=== PATIENT | female | born 1985 | race Caucasian/White ===

== ENCOUNTER → 2017-02-08 | Day surgery (SDC) | payer OTHER ==
--- NOTE | 2017-02-09 16:13 | PATH ---
Surgical Pathology Report Patient Name: EUGENIO MACIAS [facility]. Rec. #: [id number] /Age/Gender: 1985 (Age: 31) / F Account: [id number] Location: [facility] Taken: 02/08/2017 Received: 02/08/2017 Reported: 02/09/2017 Physicians: Isi Parson M.D. Specimen(s) Received LEFT AXILLARY BIOPSY Clinical History Ultrasound findings: Probably benign Final Diagnosis AXILLA, LEFT, CORE BIOPSY: BENIGN LYMPH NODE. Electronically Signed No Patterson M.D. Gross Description Received in formalin labeled "left axilla biopsy," is a 1.8 x 1.3 x 0.3 cm aggregate of multiple soto-yellow, irregular to cylindrical portions of fibroadipose tissue admixed with blood clot. The formalin is filtered and the specimen is entirely submitted in one cassette. Time to formalin fixation: 2 minute Total formalin fixation time; approximately 7 hours /02/08/201702/08/2017
== END | disposition home or self-care (01) ==
LOC: FRADUS-SUR 10:40
PROVIDERS: ATTEND Legal Medicine
PROC: 07B63ZX Excision of Left Axillary Lymphatic, Percutaneous Approach, Diagnostic (ICD-10-PCS; principal; 2017-02-08)
PROC: BH47ZZZ Ultrasonography of Upper Extremity (ICD-10-PCS; 2017-02-08)
DX: R59.9 Enlarged lymph nodes, unspecified (principal)
CPT/HCPCS: 76942-TC; 88305-TC

== ENCOUNTER 2018-04-07 16:18 | Emergency (ER) | payer OTHER ==
[2018-04-07 16:26] VITALS: BMI 19.5
[2018-04-07] MEDS ORDERED: METHOCARBAMOL 500 MG TABLET PO ONE (16:38)
[2018-04-07] MEDS ORDERED: NAPROXEN 500 MG TABLET (FP) PO ONE (16:38)
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
[2018-04-07] MEDS ORDERED: NAPROXEN 500 MG TABLET (FP) ONE (17:04)
[2018-04-07] MEDS ORDERED: METHOCARBAMOL 500 MG TABLET ONE (17:04)
[2018-04-07 17:44] VITALS: BP 117/70; PULSE 107; TEMP 98.2
== END 2018-04-07 17:54 | disposition home or self-care (01) ==
LOC: FER 16:18
DX: M62.830 Muscle spasm of back (principal); F17.210 Nicotine dependence, cigarettes, uncomplicated; Z87.39 Personal history of other diseases of the musculoskeletal system and connective tissue
CPT/HCPCS: 72070-TC-FY; 72100-TC-FY; 84703; 99282-25

== ENCOUNTER 2018-08-11 10:50 | Emergency (ER) | payer OTHER ==
[2018-08-11 11:04] VITALS: BP 113/65; TEMP 98.4; BMI 19.5
--- NOTE | 2018-08-11 12:57 | PDOC ---
History of Present Illness - General Chief Complaint: Rash Stated Complaint: ITCHY RASH TO RT KNEE Time Seen by Provider: 08/11/18 12:04 History Source: Patient Exam Limitations: No Limitations - History of Present Illness Initial Comments: 08/11/18 12:56 33F with pmh of Lupus and Sjrogen syndrom presents to the Ed with 2 weeks of pruritic rash over knees, legs and face. Worse at night when laying down. Decreased her dose of steroid 1 month ago. No one else is itchy or has rash at home. Appointment with her student support advisor on Monday. Denies any fevers or chills. Denies nausea, vomiting, diarrhea. Denies any lesions in her mouth or in her vaginal area. Denies any chest pain, shortness of breath, abdominal pain, headache, weakness or numbness. 08/11/18 13:54 Past History - Past Medical History Allergies/Adverse Reactions: Allergies Allergy/AdvReac Type Severity Reaction Status Date / Time No Known Allergies Allergy Verified 08/11/18 10:52 Home Medications: Ambulatory Orders Clonazepam [Klonopin] 2 mg PO ASDIR 02/12/13 Belimumab [Benlysta] 0 mg IV MONTHLY 04/07/18 Nortriptyline HCl [Pamelor -] 50 mg PO BID 04/07/18 predniSONE [Deltasone -] 10 mg PO DAILY 04/07/18 Diphenhydramine HCl [Benadryl -] 25 mg PO Q8H PRN #21 capsule 08/11/18 Anemia: No Asthma: No Cancer: No Cardiac Disorders: No CVA: No COPD: No CHF: No Dementia: No Diabetes: No GI Disorders: No Disorders: No HTN: No Hypercholesterolemia: No Kidney Stones: No Liver Disease: No Psychiatric Problems: Yes (ANXIETY) Seizures: No Thyroid Disease: No - Surgical History Abdominal Surgery: No Appendectomy: No Cardiac Surgery: No Cholecystectomy: Yes (lap cholecystectomy in 2010) Lung Surgery: No Neurologic Surgery: No Orthopedic Surgery: No - Reproductive History PID: No - Suicide/Smoking/Psychosocial Hx Smoking Status: Yes Smoking History: Current every day smoker Have you smoked in the past 12 months: Yes Number of Cigarettes Smoked Daily: 10 Information on smoking cessation initiated: Yes 'Breaking Loose' booklet given: 08/11/18 Hx Alcohol Use: No Drug/Substance Use Hx: No Substance Use Type: Heroin Hx Substance Use Treatment: Yes Review of Systems - Review of Systems Able to Perform ROS?: Yes Is the patient limited Irish proficient: No Constitutional: No: Symptoms Reported HEENTM: No: Symptoms Reported Respiratory: No: Symptoms reported Cardiac (ROS): No: Symptoms Reported ABD/GI: No: Symptoms Reported Integumentary: Yes: See HPI *Physical Exam - Vital Signs Last Vital Signs Temp Pulse Resp BP Pulse Ox 98.4 F 104 H 20 113/65 100 08/11/18 10:50 08/11/18 10:50 08/11/18 10:50 08/11/18 10:50 08/11/18 10:50 - Physical Exam General Appearance: Yes: Nourished, Appropriately Dressed. No: Apparent Distress HEENT: positive: EOMI, JOE, Normal ENT Inspection Respiratory/Chest: positive: Lungs Clear, Normal Breath Sounds. negative: Chest Tender, Respiratory Distress Cardiovascular: positive: Regular Rhythm, Regular Rate, S1, S2 Musculoskeletal: positive: Normal Inspection Integumentary: positive: Other (maculopapular rash over right knee, thigh and left face. No burrowing or linear lesions) Neurologic: positive: Fully Oriented, Alert, Normal Mood/Affect, Normal Response Medical Decision Making - Medical Decision Making 08/11/18 13:56 33f with lupus presenting to the ED for pruritic rash. Although there was original concern that this might be scabies, this is less likely due to the presentation, distribution and history of patient's lupus and steroid medication having decreased in dosage beofre symptoms appeared. Will treat with benadryl and follow up wioth pcp. *DC/Admit/Observation/Transfer Diagnosis at time of Disposition: Rash - Discharge Dispostion Disposition: HOME Condition at time of disposition: Stable Decision to Admit order: No - Prescriptions Prescriptions: Diphenhydramine HCl [Benadryl -] 25 mg PO Q8H PRN #21 capsule PRN Reason: itching - Referrals - Patient Instructions Printed Discharge Instructions: DI for Rash Additional Instructions: Take benadryl as needed for itching every 8 hours. This medication can make your drowsy so do not drive or operate machinery while taking it. Follow up with your student support advisor at [facility] as scheduled on Monday Return to the emergency department if you have any new, worsening, or concerning symptoms such as fevers, blisters, increasing redness. - Post Discharge Activity
[2018-08-11] MEDS ORDERED: IVERMECTIN 3 MG TABLET PO ONE (13:05)
[2018-08-11] MEDS ORDERED: diphenhydrAMINE HCL 25 MG CAPSULE (FP) PO ONE ×2 (13:12→13:17)
--- NOTE | 2018-08-11 13:17 | PDOC ---
Attending Attestation - Resident Resident Name: Darshan Holloway - ED Attending Attestation I have performed the following: I have examined & evaluated the patient, The case was reviewed & discussed with the resident, I agree w/resident's findings & plan, Exceptions are as noted - HPI HPI: 08/11/18 13:31 33-year-old female with a history of lupus (on plaquenil, prednisone and monthly benlysta) and Sjogren syndrome presents to the emergency department with 3+ weeks of rash. Patient reports the rash is mostly over her right thigh and bilateral upper extremities. She reports the itching has been keeping her up at night prompting her to come to the emergency department. She states she often has rashes that her hoop machine operator chalks up to her lupus. She has been unable to follow-up with her hoop machine operator recently. She has not tried any treatments. SHe lives with her mother, brother, and his girlfriend all of whom have no rashes. She reports one month ago her hoop machine operator decreased her prednisone from 10 mg to 7.5 after which the rash appeared. She has an appointment with her hoop machine operator on Monday. Denies any fevers or chills. Denies nausea, vomiting, diarrhea. Denies any lesions in her mouth or in her vaginal area. Denies any chest pain, shortness of breath, abdominal pain, headache, weakness or numbness. +smoker, denies drug use - Physicial Exam PE: 08/11/18 13:34 GENERAL: Awake, alert, and fully oriented, in no acute distress, non toxic HEAD: No signs of trauma EYES: PERRLA, EOMI, sclera anicteric, conjunctiva clear ENT: Auricles normal inspection, hearing grossly normal, nares patent, oropharynx clear without exudates. Moist mucosa NECK: Normal ROM, supple, no lymphadenopathy, JVD, or masses LUNGS: Breath sounds equal, clear to auscultation bilaterally. No wheezes, and no crackles HEART: Regular rate and rhythm, normal S1 and S2, no murmurs, rubs or gallops ABDOMEN: Soft, nontender, normoactive bowel sounds. No guarding, no rebound. No masses EXTREMITIES: Normal range of motion, no edema. No clubbing or cyanosis. No cords, erythema, or tenderness NEUROLOGICAL: Normal speech, cranial nerves intact, negative pronator drift, 5/ 5 strength in all 4 extremities, normal sensation to light touch in all 4 extremities, normal cerebellar exam, normal gait, normal reflexes and tone SKIN: L thigh, b/l arms with jarrod erythematous blanching patches with excoriations. No lesions in mucous membranes, no blisters, no induration. - Medical Decision Making 08/11/18 13:36 33yo F hx SLE, sjogrens presnts to the ED with pruritic rash. Pt is non toxic, well appearing and rash does not appear to have blisters, and is not infectious. Rash began after prednisone dose was decreased from 10 to 7.5mg. Pt given benadryl in ED, feels better and will follow up with her hoop machine operator in 2 days. Recommended pt increase her prednisone to 10mg again as rash began after dose was decreased. Pt requests Dc home, return precautions given. I discussed the physical exam findings, ancillary test results and final diagnoses with the patient. I answered all of the patient's questions. The patient was satisfied with the care received and felt comfortable with the discharge plan and treatment plan. The patient will call their primary care physician within 24 hours to arrange follow-up and will return to the Emergency Department with any new, persistent or worsening symptoms. *DC/Admit/Observation/Transfer Diagnosis at time of Disposition: Rash - Discharge Dispostion Disposition: HOME Condition at time of disposition: Stable Decision to Admit order: No - Prescriptions Prescriptions: Diphenhydramine HCl [Benadryl -] 25 mg PO Q8H PRN #21 capsule PRN Reason: itching - Referrals - Patient Instructions Printed Discharge Instructions: DI for Rash Additional Instructions: Take benadryl as needed for itching every 8 hours. This medication can make your drowsy so do not drive or operate machinery while taking it. Follow up with your hoop machine operator at [facility] as scheduled on Monday Return to the emergency department if you have any new, worsening, or concerning symptoms such as fevers, blisters, increasing redness. - Post Discharge Activity - Attestations Physician Attestion: 08/11/18 13:49 I, Dr. Meghan Puga MD, attest that this document has been prepared under my direction and personally reviewed by me in its entirety. I further attest, that it accurately reflects all work, treatment, procedures and medical decision -making performed by me.
[2018-08-11 13:21] VITALS: PULSE 98
== END 2018-08-11 13:50 | disposition home or self-care (01) ==
LOC: FER 10:50
DX: R21 Rash and other nonspecific skin eruption (principal); F17.210 Nicotine dependence, cigarettes, uncomplicated; F41.9 Anxiety disorder, unspecified
CPT/HCPCS: 99282-25

== ENCOUNTER 2018-10-01 13:48 | Emergency (ER) | payer OTHER ==
[2018-10-01 13:56] VITALS: BMI 19.5
--- NOTE | 2018-10-01 14:17 | PDOC ---
History of Present Illness - General Chief Complaint: Pain Stated Complaint: Migraine Headache Time Seen by Provider: 10/01/18 14:17 - History of Present Illness Initial Comments: Debora Rice is a 33yo with a PMH of SLE, Sjogren's, and migraines who presents reporting migraine headache since Monday. She states that she does have a history of migraine but they usually "go away on their own" and that she takes medication for migraine prevention. Ms Rice states that she has had severe head pain, photophobia, nausea since Monday that has prevented her from eating or drinking anything. She took "half of something" for pain control at home but will not state what it was, though she says that she took it "a long time ago." She also endorses feeling sweaty today and states that she has had worsening back pain over the past 1-2 days. Ms Rice then stated that the "only way anyone is going to figure this out is to get blood and urine tests " and she declined to answer any additional questions. Past History - Past Medical History Allergies/Adverse Reactions: Allergies Allergy/AdvReac Type Severity Reaction Status Date / Time No Known Allergies Allergy Verified 10/01/18 13:55 Home Medications: Ambulatory Orders Clonazepam [Klonopin] 2 mg PO ASDIR 02/12/13 Belimumab [Benlysta] 0 mg IV MONTHLY 04/07/18 Nortriptyline HCl [Pamelor -] 50 mg PO BID 04/07/18 predniSONE [Deltasone -] 10 mg PO DAILY 04/07/18 Diphenhydramine HCl [Benadryl -] 25 mg PO Q8H PRN #21 capsule 08/11/18 Anemia: No Asthma: No Cancer: No Cardiac Disorders: No CVA: No COPD: No CHF: No Dementia: No Diabetes: No GI Disorders: No Disorders: No HTN: No Hypercholesterolemia: No Kidney Stones: No Liver Disease: No Psychiatric Problems: Yes (ANXIETY) Seizures: No Thyroid Disease: No Other medical history: Lupus - Surgical History Abdominal Surgery: No Appendectomy: No Cardiac Surgery: No Cholecystectomy: Yes (lap cholecystectomy in 2010) Lung Surgery: No Neurologic Surgery: No Orthopedic Surgery: No - Reproductive History PID: No - Immunization History Immunization Up to Date: Yes - Suicide/Smoking/Psychosocial Hx Smoking Status: Yes Smoking History: Current every day smoker Have you smoked in the past 12 months: Yes Number of Cigarettes Smoked Daily: 10 Information on smoking cessation initiated: No 'Breaking Loose' booklet given: 08/11/18 Hx Alcohol Use: No Drug/Substance Use Hx: No Substance Use Type: Heroin Hx Substance Use Treatment: Yes Review of Systems - Review of Systems Comments:: Would not provide, declined to answer. *Physical Exam - Vital Signs Last Vital Signs Temp Pulse Resp BP Pulse Ox 98.7 F 95 H 18 94/69 98 10/01/18 13:55 10/01/18 13:55 10/01/18 13:55 10/01/18 13:55 10/01/18 13:55 - Physical Exam Comments: General: No acute distress HEENT: Declined, kept eyes closed Cards: Tachycardic, regular, no murmur Pulm: Comfortable on room air, clear to auscultation bilaterally Abd: Soft, nontender, nondistended : No CVA tenderness Ext: No LE edema, moves all extremities Skin: Normal color, no rashes or lesions Neuro: A&Ox3, CN grossly intact, normal speech, motor/sensory grossly intact and symmetric. No focal neurological deficits or abnormalities. Psych: Uncooperative, upset Moderate Sedation - Procedure Monitoring Vital Signs: Procedure Monitoring Vital Signs Temperature 98.7 F 10/01/18 13:55 Pulse Rate 95 H 10/01/18 13:55 Respiratory Rate 18 10/01/18 13:55 Blood Pressure 94/69 10/01/18 13:55 O2 Sat by Pulse Oximetry (%) 98 10/01/18 13:55 ED Treatment Course - LABORATORY CBC & Chemistry Diagram: 10/01/18 02:37 10/01/18 02:37 Medical Decision Making - Medical Decision Making 10/01/18 14:35 Debora Rice is a 33yo with a PMH of SLE, Sjogren's, and migraines who presents reporting migraine headache with photophobia and nausea since Monday. She additionally reports body aches, sweating and was noted to be tachycardic. - Per pt, she has not taken any medication at home nor had anything to eat/ drink in 2 days - Uncooperative, unwilling to provide any additional information about her symptoms. - Most likely migraine but could be infectious given sweating, body aches and tachycardia. - CBC, CMP, mag, phos, UA, urine preg for evaluation - 1L NS given likely mild dehydration in the setting of poor PO intake. PO acetaminophen, reglan for symptoms. If not , will likely give ibuprofen or toradol. 10/01/18 16:24 - Labs reviewed, unremarkable. UA with +leuk esterase and a few RBC and WBC, but sample also contains epithelial cells and is likely contaminated. 10/01/18 17:29 - Feels significantly improved, requesting to go home. - D/C home with neurology follow up - Discussed home care and return precautions in detail; Ms Rice states understanding and agreement. Discussed with Dr Ramos. Cora Steele PGY1 *DC/Admit/Observation/Transfer Diagnosis at time of Disposition: Headache - Discharge Dispostion Disposition: HOME Condition at time of disposition: Stable Decision to Admit order: No - Referrals Referrals: Vish Lopez DO [Staff Physician] - - Patient Instructions Printed Discharge Instructions: DI for Migraine Additional Instructions: Discharge Instructions: - You were seen in the emergency department for headache, light sensitivity and nausea. These were most likely caused by a migraine headache. - You had blood and urine tests completed; the only abnormality noted was slight dehydration on your urine test. You had IV fluids for re-hydration. - Your pain improved after pain medications and a nausea medication. Home Care: - Take all of your previously prescreibed home medications - Try to increase fluid intake - At the first sign of a migraine, try to take [id number] pain medications. You may take 600-800mg ibuprofen (3-4 tablets of Motrin or Advil) OR 220-440mg naproxen (1-2 tablets of Aleve). DO NOT take both of these medications as they are very similar. If your symptoms persist after an hour or two, you may take 650-1000mg acetaminophen (two Tylenol). However, after that you should not take any additional pain medication for at least 6 to 8 hours. Follow Up: - You have been referred to Dr Lopez, neurology, for evaluation and treatment of migraines. You should make an appointment to be seen within the next 1-2 weeks. - Seek immediate medical care if your symptoms worsen or become very severe, your pain does not resolve after 5-7 days, you develop fever to 101F and/or a stiff neck, or you have neurological symptoms (slurred speech, one-sided weakness, facial droop). - Post Discharge Activity
[2018-10-01] MEDS ORDERED: ACETAMINOPHEN 325 MG TABLET (FP) PO ONE (14:31)
[2018-10-01] MEDS ORDERED: SODIUM CHLORIDE 0.9% 500 ML INFUS.BAG IV ONE (14:31)
--- NOTE | 2018-10-01 14:41 | PDOC ---
Attending Attestation - Resident Resident Name: Cora Steele - ED Attending Attestation I have performed the following: I have examined & evaluated the patient, The case was reviewed & discussed with the resident, I agree w/resident's findings & plan, Exceptions are as noted - Physicial Exam PE: 10/01/18 15:08 GENERAL: The patient is awake, alert, and fully oriented, Nontoxic - in no acute distress. HEAD: Normocephalic, atraumatic. EYES: extraocular movements intact, sclera anicteric, conjunctiva clear. ENT: Normal voice, Moist mucous membranes. NECK: Normal range of motion, supple LUNGS: Breath sounds equal, clear to auscultation bilaterally. No wheezes, no rhonchi, no rales. HEART: Regular rate and rhythm, normal S1 and S2 without murmur, rub or gallop. ABDOMEN: Soft, nontender, No guarding, no rebound. . No CVA tenderness EXTREMITIES: Normal range of motion, No clubbing or cyanosis. No cords, erythema, or tenderness. NEUROLOGICAL: No facial assymetry, Normal speech, moving all 4 extremities spontaneously and symmetrically PSYCH: Normal mood, normal affect. SKIN: Warm, Dry, normal turgor, - Medical Decision Making 10/01/18 14:52 33y F hx of lupos, schogrens, migraine headache since monday associated with photophobia, n/v, c/w prior. also complaining of back pain 10/01/18 15:10 gradual onset of headache on monday, throbbing in nature w/ photophobia, w/o associated focal neuro complaints, visoin changes, fevers, uri sypmtoms. headaace c/w prior headaches but alittl worse than usual. no improvement with her meds at home. On exam the patient is no acute distress nonfocal neuro exam. Suspect migraine headache will treat the patient with fluids, Reglan, Tylenol will reassess Based on clinical presentation and onset doubt SAH, no associated neuro complaints to suggest IIH <Andrea Ramos - Last Filed: 10/01/18 15:13> - HPI HPI: 33yo with a h/o SLE, Sjogren's, and migraines who presents to the emergency department for evaluation of headache, nausea, and lower back pain. Patient reports throbbing headache, which she describes as a pressure behind the left eye, radiating to the back of her head since Monday. headace started gradually on monday and worsened on monday. She reports associated photosensitivity and decreased PO intake. Pt reports mild lower back pain which developed yesterday evening. She states she took ""half of something"" for pain control with no alleviation. Headache similar in nature to previous headaches but has not resolved like it usually does with her meds. Patients LMP on 09/24/2018. No recent injuries/traumas. Denies abdominal pain, neck pain, chest pain, SOB, rhinorrhea, dizziness, fevers , chills, vomiting, vision changes, numbness/tingling/weakness, and any bowel/ urinary symptoms. <Divine Guevara - Last Filed: 10/01/18 17:02> Attestations - Attestations Documentation prepared by Divine Guevara, acting as medical laboratory technicians for Andrea Ramos MD. <Divine Guevara - Last Filed: 10/01/18 17:02>
[2018-10-01] MEDS ORDERED: METOCLOPRAMIDE HCL INJECTION 10 MG/2 ML VIAL IVPUSH ONE (14:55)
[2018-10-01 14:56] LABS: BASO % 1.5 % (0-2.0); EOS % 1.3 % (0-4.5); HEMATOCRIT 41.7 % (32.4-45.2); HEMOGLOBIN 14.3 GM/dL (10.7-15.3); LYMPH % 16.6 % (8-40); MCH 30.6 pg (25.7-33.7); MCHC 34.3 g/dl (32.0-36.0); MEAN CELL VOLUME 89.3 fl (80-96); MEAN PLT VOLUME 7.5 fl (7.5-11.1); MONO % 8.8 % (3.8-10.2); NEUT % 71.8 % (42.8-82.8); PLATELET COUNT 237 K/MM3 (134-434); RBC 4.67 M/mm3 (3.60-5.2); RDW 14.4 % (11.6-15.6); WHITE BLOOD COUNT 7.6 K/mm3 (4.0-10.0)
[2018-10-01] MEDS ORDERED: ACETAMINOPHEN 325 MG TABLET (FP) ONE (14:56)
[2018-10-01 15:27] LABS: ALBUMIN 3.9 g/dl (3.4-5.0); ALK PHOS 70 U/L (45-117); ANION GAP 4 MMOL/L (8-16); BILIRUBIN,TOTAL 0.4 mg/dL (0.2-1); BLOOD UREA NITROGEN 11 mg/dL (7-18); CALCIUM 9.2 mg/dL (8.5-10.1); CHLORIDE 104 mmol/L (98-107); CO2 29 mmol/L (21-32); CREATININE 0.6 mg/dL (0.55-1.3); GLUCOSE,RANDOM 90 mg/dL (74-106); MAGNESIUM 2.3 mg/dL (1.8-2.4); PHOSPHOROUS 3.2 mg/dL (2.5-4.9); POTASSIUM 4.3 mmol/L (3.5-5.1); SGOT/AST 14 U/L (15-37); SGPT/ALT 21 U/L (13-61); SODIUM 137 mmol/L (136-145); TOT PROT 7.4 g/dl (6.4-8.2)
[2018-10-01 15:35] LABS: HCG,QUALITATIVE URINE Negative; URINE APPEARANCE CLOUDY; URINE BILIRUBIN NEGATIVE (<2.0 mg/dL); URINE COLOR YELLOW; URINE GLUCOSE (UA) NEGATIVE (NEGATIVE); URINE KETONE TRACE (NEGATIVE); URINE LEUK ESTERASE 1+ (NEGATIVE); URINE NITRITE NEGATIVE (NEGATIVE); URINE PROTEIN 1+ (NEGATIVE); URINE UROBILINOGEN NEGATIVE mg/dL (0.2-1.0)
[2018-10-01 15:51] LABS: EPI CELLS MANY /HPF (FEW); URINE MUCUS MODERATE
[2018-10-01] MEDS ORDERED: METOCLOPRAMIDE HCL INJECTION 10 MG/2 ML VIAL ONE (15:53)
[2018-10-01] MEDS ORDERED: KETOROLAC TROMETHAMINE 30 MG/1 ML VIAL IVPUSH ONE (16:31)
[2018-10-01] MEDS ORDERED: KETOROLAC TROMETHAMINE 30 MG/1 ML VIAL ONE (17:05)
[2018-10-01 17:52] VITALS: BP 113/51; PULSE 94; TEMP 98
== END 2018-10-01 17:50 | disposition home or self-care (01) ==
LOC: JER 13:48
PROC: 3E033GC Introduction of Other Therapeutic Substance into Peripheral Vein, Percutaneous Approach (ICD-10-PCS; principal; 2018-10-01)
PROC: 3E0333Z Introduction of Anti-inflammatory into Peripheral Vein, Percutaneous Approach (ICD-10-PCS; 2018-10-01)
DX: G43.909 Migraine, unspecified, not intractable, without status migrainosus (principal); M32.9 Systemic lupus erythematosus, unspecified; M35.00 Sjogren syndrome, unspecified; F41.9 Anxiety disorder, unspecified; F17.210 Nicotine dependence, cigarettes, uncomplicated; Z90.49 Acquired absence of other specified parts of digestive tract
CPT/HCPCS: 36415; 80053; 81003; 81015; 83735; 84100; 84703; 85025; 96374; 96375; 99284-25

== ENCOUNTER 2018-10-13 18:50 | Emergency (ER) | payer OTHER ==
[2018-10-13 19:11] VITALS: BP 120/70; PULSE 100; TEMP 98.9; BMI 19.5
[2018-10-13] MEDS ORDERED: predniSONE 20 MG TABLET (UD) PO ONE (19:16)
--- NOTE | 2018-10-13 19:16 | PDOC ---
History of Present Illness - General History Source: Patient Exam Limitations: No Limitations <Emma Arana I - Last Filed: 10/13/18 19:19> - General History Source: Patient Exam Limitations: No Limitations - History of Present Illness Initial Comments: 10/13/18 19:42 The patient is a 33 year old female, with a significant PMH of lupus and anxiety , who presents to the emergency department complaining of back pain that began approximately 6 days ago. The patient states she was lifted a bin when she noticed a sharp pain to her lower back. The patient states she experiences intermittent back pain since then and pain is exacerbated when patient bends down, temporary relief with Vicodin and Percocet. The patient denies chest pain , headache and dizziness. Denies any numbness or tingling. Denies fever, chills , nausea, vomit, diarrhea and constipation. Denies dysuria, frequency, urgency and hematuria. PAST MEDICAL HISTORY: no significant history PAST SURGICAL HISTORY: lap cholecystectomy 2010 FAMILY HISTORY: no pertinent history SOCIAL HISTORY: Pt lives with family and is employed. MEDICATIONS: reviewed ALLERGIES: As per nursing notes Adult ROS General: No fevers or chills, no weakness, no weight loss HEENT: No change in vision. No sore throat,. No ear pain CardioVascular: No chest pain or shortness of breath Respiratory:No cough, or wheezing. Gastrointestinal: no nausea, vomiting, diarrhea or constipation, No rectal bleeding Genitourinary: No dysuria, hematuria, or frequency Musculoskeletal: +Back pain. Neurologic: No headache, vertigo, dizziness or loss of consciousness Psychiatric: nor depression Skin: No rashes or easy bruising Endocrine: no increased thirst or abnormal weight change Allergic: no skin or latex allergy All other systems reviewed and normal Basic PE GENERAL: The patient is awake, alert, and fully oriented, in no acute distress. HEAD: Normal with no signs of trauma. EYES: Pupils equal, round and reactive to light, extraocular movements intact, sclera anicteric, conjunctiva clear. EXTREMITIES: +Mild spasm paraspinal area to the left upper lumbar spine, no tenderness on palpation. No tenderness on palpation of the thoracic lumbar and sacral spine. NEUROLOGICAL: Normal speech, normal gait. PSYCH: Normal mood, normal affect. SKIN: Warm, Dry, normal turgor, no rashes or lesions noted. <Teresa Argueta - Last Filed: 10/13/18 19:46> - General Chief Complaint: Back Pain Stated Complaint: LOW BACK PAIN Time Seen by Provider: 10/13/18 19:08 Past History - Past Medical History Anemia: No Asthma: No Cancer: No Cardiac Disorders: No CVA: No COPD: No CHF: No Dementia: No Diabetes: No GI Disorders: No Disorders: No HTN: No Hypercholesterolemia: No Kidney Stones: No Liver Disease: No Psychiatric Problems: Yes (ANXIETY, OPIOID DEPENDENCE) Seizures: No Thyroid Disease: No Other medical history: LUPUS - Surgical History Abdominal Surgery: No Appendectomy: No Cardiac Surgery: No Cholecystectomy: Yes (lap cholecystectomy in 2010) Lung Surgery: No Neurologic Surgery: No Orthopedic Surgery: No - Reproductive History PID: No - Immunization History Immunization Up to Date: Yes - Suicide/Smoking/Psychosocial Hx Smoking Status: Yes Smoking History: Current every day smoker Have you smoked in the past 12 months: Yes Number of Cigarettes Smoked Daily: 10 Information on smoking cessation initiated: Yes 'Breaking Loose' booklet given: 08/11/18 Hx Alcohol Use: Yes Drug/Substance Use Hx: Yes Substance Use Type: Heroin Hx Substance Use Treatment: Yes <Emma Arana I - Last Filed: 10/13/18 19:19> <Teresa Argueta - Last Filed: 10/13/18 19:46> - Past Medical History Allergies/Adverse Reactions: Allergies Allergy/AdvReac Type Severity Reaction Status Date / Time No Known Allergies Allergy Verified 10/13/18 19:10 Home Medications: Ambulatory Orders Clonazepam [Klonopin] 2 mg PO ASDIR 02/12/13 Belimumab [Benlysta] 0 mg IV MONTHLY 04/07/18 Nortriptyline HCl [Pamelor -] 50 mg PO BID 04/07/18 predniSONE [Deltasone -] 10 mg PO DAILY 04/07/18 Diphenhydramine HCl [Benadryl -] 25 mg PO Q8H PRN #21 capsule 08/11/18 Cholecalciferol (Vitamin D3) [Vitamin D3] 1,000 unit PO HS 10/13/18 Hydroxychloroquine Sulfate [Plaquenil] 200 mg PO HS 10/13/18 Naproxen 375 mg PO BID #28 tablet 10/13/18 Trauma Specific PMHX - Complaint Specific PMHX Arthritis: No <Emma Arana I - Last Filed: 10/13/18 19:19> *Physical Exam - Vital Signs Last Vital Signs Temp Pulse Resp BP Pulse Ox 98.9 F 100 H 18 120/70 100 10/13/18 19:00 10/13/18 19:00 10/13/18 19:00 10/13/18 19:00 10/13/18 19:00 <Emma Arana I - Last Filed: 10/13/18 19:19> - Vital Signs Last Vital Signs Temp Pulse Resp BP Pulse Ox 98.9 F 100 H 18 120/70 100 10/13/18 19:00 10/13/18 19:00 10/13/18 19:00 10/13/18 19:00 10/13/18 19:00 <Teresa Argueta - Last Filed: 10/13/18 19:46> Moderate Sedation - Procedure Monitoring Vital Signs: Procedure Monitoring Vital Signs Temperature 98.9 F 10/13/18 19:00 Pulse Rate 100 H 10/13/18 19:00 Respiratory Rate 18 10/13/18 19:00 Blood Pressure 120/70 10/13/18 19:00 O2 Sat by Pulse Oximetry (%) 100 10/13/18 19:00 <Emma Arana I - Last Filed: 10/13/18 19:19> - Procedure Monitoring Vital Signs: Procedure Monitoring Vital Signs Temperature 98.9 F 10/13/18 19:00 Pulse Rate 100 H 10/13/18 19:00 Respiratory Rate 18 10/13/18 19:00 Blood Pressure 120/70 10/13/18 19:00 O2 Sat by Pulse Oximetry (%) 100 10/13/18 19:00 <Teresa Argueta - Last Filed: 10/13/18 19:46> ED Treatment Course - Medications Given in the ED: ED Medications Discontinued Medications Generic Name Dose Route Start Last Admin Trade Name Freq PRN Reason Stop Dose Admin Ketorolac Tromethamine 60 mg 10/13/18 19:17 10/13/18 19:25 Toradol Injection - IM 10/13/18 19:18 60 mg ONCE ONE Administration Prednisone 40 mg 10/13/18 19:16 10/13/18 19:25 Deltasone - PO 10/13/18 19:17 40 mg ONCE ONE Administration <Halina Arguetagopi - Last Filed: 10/13/18 19:46> *DC/Admit/Observation/Transfer - Discharge Dispostion Decision to Admit order: No <Emma Arana I - Last Filed: 10/13/18 19:19> - Attestations Scribe Attestion: 10/13/18 19:44 Documentation prepared by Teresa Argueta, acting as manager medical affairs for Emma Arana MD. <KendallTeresa - Last Filed: 10/13/18 19:46> Diagnosis at time of Disposition: Low back pain Qualifiers: Chronicity: acute Back pain laterality: left Sciatica presence: without sciatica Qualified Code(s): M54.5 - Low back pain - Discharge Dispostion Disposition: HOME Condition at time of disposition: Good - Prescriptions Prescriptions: Naproxen 375 mg PO BID #28 tablet - Referrals Referrals: Zane Lane MD [Staff Physician] - - Patient Instructions Printed Discharge Instructions: Reasons to Quit Smoking Additional Instructions: For the pain take Naprosyn 1 tablet twice a day take with food don't take on an empty stomach Follow-up with an orthopedist if symptoms have not improved after 2 weeks of the Naprosyn. Return to the emergency department immediately with ANY new, persistent or worsening symptoms. Continue any medications as previously prescribed by your physician. You should follow up with your primary doctor as soon as possible regarding today's emergency department visit. . Please make sure your doctor reviews the results of your emergency evaluation. Thank you for coming to the Emergency Department today for your care. It was a pleasure to see you today. Please note that your evaluation is INCOMPLETE until you follow-up with your doctor.
[2018-10-13] MEDS ORDERED: KETOROLAC TROMETHAMINE 60 MG/2 ML VIAL IM ONE (19:17)
[2018-10-13] MEDS ORDERED: KETOROLAC TROMETHAMINE 60 MG/2 ML VIAL ONE (19:23)
[2018-10-13] MEDS ORDERED: predniSONE 20 MG TABLET (UD) ONE (19:23)
== END 2018-10-13 19:34 | disposition home or self-care (01) ==
LOC: FER 18:50
PROC: 3E0233Z Introduction of Anti-inflammatory into Muscle, Percutaneous Approach (ICD-10-PCS; principal; 2018-10-13)
DX: M54.5 Low back pain (principal); X58.XXXA Exposure to other specified factors, initial encounter; Y93.89 Activity, other specified; Y92.89 Other specified places as the place of occurrence of the external cause; Y99.0 Civilian activity done for income or pay; F17.210 Nicotine dependence, cigarettes, uncomplicated; F41.9 Anxiety disorder, unspecified; M32.9 Systemic lupus erythematosus, unspecified
CPT/HCPCS: 99282-25

== ENCOUNTER 2019-02-18 00:02 | Emergency (ER) | payer OTHER | END 2019-02-18 00:44 | disposition home or self-care (01) | LOC: FER 00:02 ==

== ENCOUNTER 2019-07-21 19:25 | Emergency (ER) | payer OTHER ==
[2019-07-21 19:53] VITALS: BP 135/85; TEMP 98; BMI 19.5
--- NOTE | 2019-07-21 20:02 | PDOC ---
History of Present Illness - General Chief Complaint: Pain Stated Complaint: RIGHT SIDED BACK PAIN X 5 DAYS Time Seen by Provider: 07/21/19 19:55 Past History - Past Medical History Allergies/Adverse Reactions: Allergies Allergy/AdvReac Type Severity Reaction Status Date / Time No Known Allergies Allergy Verified 07/21/19 19:27 Home Medications: Ambulatory Orders Clonazepam [Klonopin] 2 mg PO ASDIR 02/12/13 Belimumab [Benlysta] 0 mg IV MONTHLY 04/07/18 Nortriptyline HCl [Pamelor -] 50 mg PO BID 04/07/18 predniSONE [Deltasone -] 10 mg PO DAILY 04/07/18 Cholecalciferol (Vitamin D3) [Vitamin D3] 1,000 unit PO HS 10/13/18 Hydroxychloroquine Sulfate [Plaquenil] 200 mg PO HS 10/13/18 Naproxen Sodium [Aleve] 220 mg PO BID #40 tablet 02/18/19 Anemia: No Asthma: No Cancer: No Cardiac Disorders: No CVA: No COPD: No CHF: No Dementia: No Diabetes: No GI Disorders: No Disorders: No HTN: No Hypercholesterolemia: No Kidney Stones: No Liver Disease: No Psychiatric Problems: Yes (ANXIETY, OPIOID DEPENDENCE) Seizures: No Thyroid Disease: No Other medical history: LUPUS - Surgical History Abdominal Surgery: No Appendectomy: No Cardiac Surgery: No Cholecystectomy: Yes (lap cholecystectomy in 2010) Lung Surgery: No Neurologic Surgery: No Orthopedic Surgery: No - Reproductive History PID: No - Immunization History Immunization Up to Date: Yes - Psycho Social/Smoking Cessation Hx Smoking Status: Yes Smoking History: Current every day smoker Have you smoked in the past 12 months: Yes Number of Cigarettes Smoked Daily: 20 Information on smoking cessation initiated: No 'Breaking Loose' booklet given: 10/13/18 Hx Alcohol Use: No Drug/Substance Use Hx: No Substance Use Type: Heroin Hx Substance Use Treatment: Yes *Physical Exam - Vital Signs Last Vital Signs Temp Pulse Resp BP Pulse Ox 98 F 120 H 16 135/85 100 07/21/19 19:32 07/21/19 19:32 07/21/19 19:32 07/21/19 19:32 07/21/19 19:32 Discharge - Discharge Information Condition: Stable - Follow up/Referral - Patient Discharge Instructions - Post Discharge Activity
[2019-07-21 20:28] VITALS: PULSE 94
[2019-07-21 20:32] LABS: ACTIVATED PTT 31.1 SECONDS (25.2-36.5)
[2019-07-21 20:33] LABS: CALCIUM 9.8 mg/dl (8.5-10); CREATININE 0.8 mg/dl (0.55-1.3); POTASSIUM 3.5 mmol/L (3.5-5.1)
[2019-07-21 20:37] LABS: INR 1.09 (0.82-1.09); PROTHROMBIN TIME (PATIENT) 12.2 SEC (10.2-13.0)
--- NOTE | 2019-07-22 11:02 | EKG ---
Test Reason : Blood Pressure : / mmHG Vent. Rate : 096 BPM Atrial Rate : 096 BPM P-R Int : 136 ms QRS Dur : 078 ms QT Int : 348 ms P-R-T Axes : 071 078 059 degrees QTc Int : 439 ms NORMAL SINUS RHYTHM NORMAL ECG NO PREVIOUS ECGS AVAILABLE Confirmed by RAMNO HEREDIA MD ([id number]) on 07/22/2019 11:01:46 AM Referred By: Confirmed By:RAMON HEREDIA MD
== END 2019-07-22 00:55 | disposition home or self-care (01) ==
LOC: FER 19:25
DX: R09.1 Pleurisy (principal); F41.0 Panic disorder [episodic paroxysmal anxiety]; M32.9 Systemic lupus erythematosus, unspecified; F17.210 Nicotine dependence, cigarettes, uncomplicated
CPT/HCPCS: 36415; 71046-TC-FY; 71275-TC; 80048; 84703; 85379; 85610; 85730; 93005; 99282-25

== ENCOUNTER 2020-11-01 11:50 | Emergency (ER) | payer OTHER ==
[2020-11-01 12:01] VITALS: BP 131/79; PULSE 101; TEMP 98; BMI 20.7
[2020-11-01] MEDS ORDERED: IBUPROFEN 600 MG TABLET (FP) PO ONE ×2 (12:22→12:25)
[2020-11-01] MEDS ORDERED: ACETAMINOPHEN 500 MG TABLET (FP) PO ONE (12:22)
[2020-11-01] MEDS ORDERED: ACETAMINOPHEN 500 MG TABLET (FP) ONE (12:25)
== END 2020-11-01 13:55 | disposition home or self-care (01) ==
LOC: FER 11:50
DX: S62.92XA Unspecified fracture of left hand, initial encounter for closed fracture (principal)
CPT/HCPCS: 73110-TC-LT-FY; 73130-TC-LT-FY; 99284-25

== ENCOUNTER 2020-12-14 03:06 | Emergency (ER) | payer OTHER ==
[2020-12-14 03:27] VITALS: BP 117/92; PULSE 124; TEMP 97.9; BMI 19.5
[2020-12-14] MEDS ORDERED: FAMOTIDINE 20 MG/50 ML IVPB 20 MG/50 ML MG IVPB ONE ×2 (03:51→03:55)
[2020-12-14] MEDS ORDERED: MAG HYDROX/AL HYDROX/SIMETH -MYLANTA- ORAL SUSPENSION PO ONE (03:51)
[2020-12-14] MEDS ORDERED: MAG HYDROX/AL HYDROX/SIMETH 30 ML UNIT-DOSE CUP ONE (03:55)
[2020-12-14] MEDS ORDERED: METOCLOPRAMIDE HCL INJECTION 10 MG/2 ML VIAL IVPB ONE (04:11)
[2020-12-14] MEDS ORDERED: SODIUM CHLORIDE 0.9% 500 ML INFUS.BAG IV ONE (04:11)
[2020-12-14] MEDS ORDERED: METOCLOPRAMIDE HCL INJECTION 10 MG/2 ML VIAL ONE (04:13)
[2020-12-14 04:34] LABS: BASO % 0.6 % (0-2.0); EOS % 0.5 % (0-4.5); HEMATOCRIT 33.7 % (32.4-45.2); HEMOGLOBIN 11.5 GM/dL (10.7-15.3); LYMPH % 10.9 % (8-40); MCH 28.8 pg (25.7-33.7); MCHC 34.2 g/dl (32.0-36.0); MEAN CELL VOLUME 84.3 fl (80-96); MEAN PLT VOLUME 7.8 fl (7.5-11.1); MONO % 5.2 % (3.8-10.2); NEUT % 82.8 % (42.8-82.8); PLATELET COUNT 286 K/MM3 (134-434); RBC 3.99 M/mm3 (3.60-5.2); RDW 16.2 % (11.6-15.6); WHITE BLOOD COUNT 10.4 K/mm3 (4.0-10.0)
[2020-12-14 05:02] LABS: POTASSIUM 3.6 mmol/L (3.5-5.1)
[2020-12-14 05:04] LABS: CALCIUM 9.3 mg/dL (8.5-10.1)
[2020-12-14 05:05] LABS: ALBUMIN 3.9 g/dl (3.4-5.0); BLOOD UREA NITROGEN 16.4 mg/dL (7-18)
[2020-12-14 05:08] LABS: CREATININE 0.8 mg/dL (0.55-1.3)
[2020-12-14 05:10] LABS: BILIRUBIN,TOTAL 0.3 mg/dL (0.2-1); TOT PROT 7.6 g/dl (6.4-8.2)
[2020-12-14] MEDS ORDERED: ACETAMINOPHEN 1000 MG/100 ML VIAL (NON FORMULARY) IVPB ONE (06:04)
[2020-12-14] MEDS ORDERED: ACETAMINOPHEN INJECTION 100 ML IVPB ONE (06:12)
== END 2020-12-14 07:15 | disposition home or self-care (01) ==
LOC: JER 03:06
PROC: 3E0333Z Introduction of Anti-inflammatory into Peripheral Vein, Percutaneous Approach (ICD-10-PCS; principal; 2020-12-14)
PROC: 3E033GC Introduction of Other Therapeutic Substance into Peripheral Vein, Percutaneous Approach (ICD-10-PCS; 2020-12-14)
PROC: 3E033GC Introduction of Other Therapeutic Substance into Peripheral Vein, Percutaneous Approach (ICD-10-PCS; 2020-12-14)
DX: R10.13 Epigastric pain (principal)
CPT/HCPCS: 36415; 80053; 83690; 84702; 85025; 96374; 96375; 99284-25; J0131

== ENCOUNTER 2021-09-20 06:41 | Emergency (ER) | payer OTHER ==
[2021-09-20 06:59] VITALS: BP 136/74; PULSE 116; TEMP 98.3; BMI 30.1
[2021-09-20] MEDS ORDERED: LIDOCAINE 5% TOPICAL PATCH TP ONE (07:46)
[2021-09-20] MEDS ORDERED: ACETAMINOPHEN 500 MG TABLET (FP) PO ONE (07:46)
[2021-09-20] MEDS ORDERED: ACETAMINOPHEN 500 MG TABLET (FP) ONE (07:51)
[2021-09-20] MEDS ORDERED: LIDOCAINE 5% TOPICAL PATCH ONE (07:51)
[2021-09-20 08:28] LABS: EPITHELIAL CELLS MODERATE /hpf
[2021-09-20] MEDS ORDERED: CEPHALEXIN MONOHYDRATE 500 MG CAPSULE (UD) PO ONE (08:39)
[2021-09-20] MEDS ORDERED: CEPHALEXIN MONOHYDRATE 500 MG CAPSULE (UD) ONE (08:53)
[2021-09-20] MEDS ORDERED: LIDOCAINE PATCH REMOVAL MC SCH (22:00)
== END 2021-09-20 09:05 | disposition home or self-care (01) ==
LOC: FER 06:41
DX: O23.42 Unspecified infection of urinary tract in pregnancy, second trimester (principal); M54.50 Low back pain, unspecified; Z3A.17 17 weeks gestation of pregnancy
CPT/HCPCS: 76815; 81003; 81015; 87086; 87186; 99284-25

== ENCOUNTER 2022-02-20 15:45 | Emergency (ER) | payer OTHER ==
[2022-02-20 15:54] VITALS: BP 134/88; PULSE 87; TEMP 99; BMI 19.6
[2022-02-20 17:23] LABS: HEMATOCRIT 40.4 % (32.4-45.2); HEMOGLOBIN 13.7 G/dL (10.7-15.3); MCH 30.6 pg (25.7-33.7); MEAN CELL VOLUME 90.1 fl (80-96); MEAN PLT VOLUME 7.4 fl (7.5-11.1); PLATELET COUNT 275.7 10^3/uL (134-434); RBC 4.48 10^6/uL (3.60-5.2); RDW 15.1 % (11.6-15.6)
[2022-02-20 17:42] LABS: EPITHELIAL CELLS FEW /hpf
[2022-02-20 17:48] LABS: ALBUMIN 4.1 g/dl (3.4-5.0); BILIRUBIN,TOTAL 0.7 mg/dl (0.2-1); CALCIUM 9.9 mg/dl (8.5-10); CREATININE 0.8 mg/dl (0.55-1.3); TOT PROT 6.6 g/dl (6.4-8.2)
[2022-02-20 17:52] LABS: PLATELET ESTIMATE ADEQUATE
[2022-02-20] MEDS ORDERED: SULFAMETHOXAZOLE/TRIMETHOPRIM 800MG/160MG D.S. TABLET PO ONE (17:53)
[2022-02-20] MEDS ORDERED: NAPROXEN 250 MG TABLET PO ONE (17:54)
[2022-02-20] MEDS ORDERED: SULFAMETHOXAZOLE/TRIMETHOPRIM 800MG/160MG D.S. TABLET ONE (17:56)
[2022-02-20] MEDS ORDERED: NAPROXEN 250 MG TABLET ONE (17:56)
== END 2022-02-20 18:05 | disposition home or self-care (01) ==
LOC: FER 15:45
DX: N39.0 Urinary tract infection, site not specified (principal)
CPT/HCPCS: 36415; 80053; 81003; 81015; 84703; 85025; 85651; 87086; 87186; 99283-25

== ENCOUNTER 2022-02-27 22:08 | Emergency (ER) | payer OTHER ==
[~2022-02-27 22:08] MED LIST: LIDOCAINE PATCH REMOVAL MC SCH
[2022-02-27 22:14] VITALS: BP 117/78; PULSE 89; TEMP 98.6; BMI 19.6
[2022-02-27] MEDS ORDERED: LIDOCAINE 5% TOPICAL PATCH TP ONE (22:58)
[2022-02-27] MEDS ORDERED: LIDOCAINE 5% TOPICAL PATCH ONE (23:01)
[2022-02-27 23:14] LABS: URINE APPEARANCE CLEAR; URINE BILIRUBIN NEGATIVE (NEGATIVE); URINE COLOR YELLOW; URINE GLUCOSE (UA) NEGATIVE (NEGATIVE); URINE KETONE TRACE (NEGATIVE); URINE LEUK ESTERASE NEGATIVE (NEGATIVE); URINE NITRITE NEGATIVE (NEGATIVE); URINE PROTEIN TRACE (NEGATIVE)
[2022-02-28] MEDS ORDERED: IBUPROFEN 200 MG TABLET PO ONE (00:39)
[2022-02-28] MEDS ORDERED: IBUPROFEN 600 MG TABLET (FP) PO ONE (00:47)
== END 2022-02-28 01:01 | disposition home or self-care (01) ==
LOC: JER 22:08
DX: M54.50 Low back pain, unspecified (principal)
CPT/HCPCS: 72131-TC; 81003; 84703; 99284-25

== ENCOUNTER 2022-07-04 01:31 | Emergency (ER) | payer OTHER ==
[2022-07-04 01:41] VITALS: BP 138/89; PULSE 112; RESP 16; TEMP 98.1; BMI 19.9
[2022-07-04] MEDS ORDERED: IBUPROFEN 600 MG TABLET (FP) PO ONE ×2 (02:13→02:16)
== END 2022-07-04 02:26 | disposition home or self-care (01) ==
LOC: FER 01:31
DX: S63.502A Unspecified sprain of left wrist, initial encounter (principal); Y04.2XXA Assault by strike against or bumped into by another person, initial encounter
CPT/HCPCS: 72220-TC-FY; 73110-TC-LT-FY; 73130-TC-LT-FY; 81025; 99285-25

== ENCOUNTER 2024-03-03 22:49 | Emergency (ER) | payer OTHER ==
[2024-03-03 22:57] VITALS: BP 110/70; BMI 18.6
== END 2024-03-03 23:16 | disposition home or self-care (01) ==
LOC: FER 22:49
DX: O09.511 Supervision of elderly primigravida, first trimester (principal); O9A.211 Injury, poisoning and certain other consequences of external causes complicating pregnancy, first trimester; S60.561A Insect bite (nonvenomous) of right hand, initial encounter; S60.562A Insect bite (nonvenomous) of left hand, initial encounter; Z3A.00 Weeks of gestation of pregnancy not specified
CPT/HCPCS: 99282-25